=== PATIENT | female | born 1970 | race African-American/Black ===

== ENCOUNTER 2017-03-17 14:57 | Emergency (ER) | payer MEDICAID ==
[~2017-03-17] VITALS: Ht 167.6 cm; Wt 90.0 kg
[2017-03-17] MEDS ORDERED: KETOROLAC 60MG/2ML VIAL IM ONE (17:00)
[2017-03-17 17:04] VITALS: BP 108/54
== END 2017-03-17 17:05 | disposition home or self-care (01) ==
LOC: ER 16:23
DX: R51 Headache (principal); M54.2 Cervicalgia; M79.1 Myalgia; I10 Essential (primary) hypertension; F41.9 Anxiety disorder, unspecified; Z88.6 Allergy status to analgesic agent; Z88.8 Allergy status to other drugs, medicaments and biological substances; Z98.890 Other specified postprocedural states; V49.9XXA Car occupant (driver) (passenger) injured in unspecified traffic accident, initial encounter; Y93.89 Activity, other specified; Y92.89 Other specified places as the place of occurrence of the external cause; Y99.8 Other external cause status
CPT/HCPCS: 96372; 99283; J1885